=== PATIENT | male | born 1950 | race Caucasian/White ===

== ENCOUNTER 2020-02-01 13:25 | Outpatient (CLI) | payer BC, SELFPAY ==
--- NOTE | ~2020-02-01 | US_ITS ---
EXAMINATION:US venous doppler LE BI INDICATION:Polyneuropathy. Burning sensation in feet. TECHNIQUE: Multiple grayscale, color flow and Doppler images of the lower extremity deep venous syste ms were obtained and reviewed. COMPARISON:No prior studies for comparison. FINDINGS: The common femoral, superficial femoral and popliteal veins demonstrate normal respiratory variation, augmentation and compressibility. Color flow is also seen within the posterior tibial, pe roneal, greater saphenous and profunda veins. IMPRESSION: 1: No lower extremity deep venous thrombosis. Reviewed, dictated and finalized at location A.
--- NOTE | ~2020-02-01 | US_ITS ---
EXAMINATION: US art doppler w christofer ASHBY EXAM DATE: 02/01/2020 14:40 INDICATION: Feet tingling and numbness. TECHNIQUE: Segmental pressures and plethysmographic and Doppler waveforms of the brachial and lower e xtremity arteries were obtained. There is no prior study for comparison. FINDINGS: Right and left brachial artery pressures of 156 mm Hg and 151 mm Hg, respectively, are concordant (no rmal difference <= 30 mmHg). RIGHT LEG: The ankle-brachial index (DOMITILA) is 1.24 (normal >= 0.9-1). The great toe-brachial index (TBI) is 0.85 (normal >= 0.65). The lower extremity ratios, segmental pressure gradients as follows; Proximal superficial femoral artery:- Could not obtain ( mmHg). Distal superficial femoral artery: ----- Could not obtain ( mmHg). Popliteal: Could not obtain ( mmHg). Dorsalis pedis: 1.24 (194 mmHg). Posterior tibial: Could not obtain ( mmHg). (Normal gradients <= 20-30 mmHg between adjacent levels on the same leg or the same levels on the two legs). Arterial waveforms are biphasic. LEFT LEG: The ankle-brachial index (DOMITILA) is could not obtain (normal >= 0.9-1). The great toe-brachial index (TBI) is 0.88 (normal >= 0.65). The lower extremity ratios, segmental pressure gradients as follows; Proximal superficial femoral artery:- Could not obtain ( mmHg). Distal superficial femoral artery: ----- Could not obtain ( mmHg). Popliteal: Could not obtain ( mmHg). Dorsalis pedis: Could not obtain ( mmHg). Posterior tibial: Could not obtain ( mmHg). (Normal gradients <= 20-30 mmHg between adjacent levels on the same leg or the same levels on the two legs). Arterial waveforms are biphasic. IMPRESSION: 1. Right ankle-brachial index 1.24. 2. Left ankle-brachial index could not be obtained, could not Cuff Occlude arteries. Normal TBI. Reviewed, dictated and finalized at location A. IMPRESSION: 1. Right ankle-brachial index 1.24. 2. Left ankle-brachial index could not be obtained, could not Cuff Occlude art eries. Normal TBI.
== END 2020-02-01 13:26 | disposition home or self-care (01) ==
LOC: ANHIMG 13:32
PROVIDERS: PCP Internal Medicine; Visit Provider Internal Medicine
DX: G62.9 Polyneuropathy, unspecified (principal)
CPT/HCPCS: 93923; 93970

== ENCOUNTER 2022-02-12 15:46 | Outpatient (CLI) | payer BC, SELFPAY ==
--- NOTE | ~2022-02-12 | MR_ITS ---
EXAMINATION: MR cervical spine wo/w con DATE: 02/12/2022 17:26 INDICATION: Subacute combined degeneration of spinal cord. Burning in the feet. Difficulty standing. TECHNIQUE: Magnetic resonance imaging (MRI) of the cervical spine was performed without and with 20 m L MultiHance intravenous contrast. Sequences included sagittal and axial T2-weighted FSE, sagittal T2 -weighted FS FSE, and sagittal and axial T1-weighted FSE. Postcontrast sequences included sagittal an d axial T1-weighted FS FSE. COMPARISON: None FINDINGS: There is 2 mm retrolisthesis of C3 on C4. Vertebral body heights are normal. There is inter body fusion at C6-C7. There is moderately decreased disc height at C3-C4 and mildly decreased disc he ight at C4-C5. The spinal cord signal intensity is normal. The following disc levels are specifically discussed: C2-C3: There is a central extrusion. There is no uncovertebral joint osteoarthritis. There is mild ri ght and moderate left facet joint osteoarthritis. There is mild left neural foraminal stenosis. There is mild central canal stenosis. C3-C4: The disc is bulging. There is severe bilateral uncovertebral joint osteoarthritis. There is mo derate bilateral facet joint osteoarthritis. There is severe bilateral neural foraminal stenosis. The re is mild central canal stenosis. C4-C5: The disc is bulging. There is severe right and moderate left uncovertebral joint osteoarthriti s. There is mild bilateral facet joint osteoarthritis. There is severe right and moderate left neural foraminal stenosis. There is mild central canal stenosis. C5-C6: The disc is bulging with superimposed left central extrusion. There is moderate bilateral unco vertebral joint osteoarthritis. There is mild bilateral facet joint osteoarthritis. There is mild carlos alberto ateral neural foraminal stenosis. There is mild central canal stenosis with ventral indentation of th e spinal cord. C6-C7: There is moderate bilateral uncovertebral joint hypertrophy. There is mild bilateral facet kaylin nt osteoarthritis. There is mild bilateral neural foraminal stenosis. There is no central canal steno sis. C7-T1: The disc does not extend beyond the endplate margin. There is mild bilateral uncovertebral kaylin nt osteoarthritis. There is mild bilateral facet joint osteoarthritis. There is no neural foraminal s tenosis. There is no central canal stenosis. IMPRESSION: 1. Severe cervical spondylosis. Reviewed, dictated and finalized at location A.
--- NOTE | ~2022-02-12 | MR_ITS ---
EXAMINATION: MR thoracic spine wo/w con DATE: 02/12/2022 17:33 INDICATION: Subacute combined degeneration of spinal cord. Burning in the feet. TECHNIQUE: Magnetic resonance imaging (MRI) of the thoracic spine was performed without and with 20 m L MultiHance intravenous contrast. COMPARISON: Thoracic spine CT 07/12/2018 FINDINGS: Bone alignment is normal. There is mild chronic anterior wedging of T6, T7, T8, T11, T12, a nd L1 vertebral bodies. There is a hemangioma in T7 vertebral body. There is mildly decreased disc he ight at T2-T3, T3-T4, T4-T5, T5-T6, T11-T12, and T12-L1. At T2-T3, there is a left central extrusion with mild central canal stenosis. At T3-T4, there is a left central extrusion with mild central canal stenosis. At T4-T5, there is a central protrusion with mild central canal stenosis. At T6-T7, there is a left central protrusion with mild central canal stenosis. At T7-T8, there is a left central prot rusion with mild central canal stenosis. At T11-T12, there is a bulging disc with mild central canal stenosis. At T12-L1, there is a bulging disc with mild central canal stenosis. There is multilevel fa cet joint osteoarthritis, severe on the right from T3-T4 through T5-T6. There is multilevel mild neur al foraminal stenosis bilaterally. On the left at T8-T9, there is moderate neural foraminal stenosis. The spinal cord signal intensity is normal. IMPRESSION: 1. Mild thoracic spondylosis. 2. Normal spinal cord signal intensity. Reviewed, dictated and finalized at location A.
[2022-02-12 16:39] LABS: Estimated Glomerular Filt Rate > 60
== END 2022-02-12 15:47 | disposition home or self-care (01) ==
PROVIDERS: Visit Provider Psychiatry & Neurology Neurology
DX: E53.8 Deficiency of other specified B group vitamins (principal); G32.0 Subacute combined degeneration of spinal cord in diseases classified elsewhere; M47.815 Spondylosis without myelopathy or radiculopathy, thoracolumbar region; M48.05 Spinal stenosis, thoracolumbar region; M47.813 Spondylosis without myelopathy or radiculopathy, cervicothoracic region; M48.03 Spinal stenosis, cervicothoracic region
CPT/HCPCS: 72156; 72157; A9577

== ENCOUNTER 2022-02-20 09:59 | Outpatient (CLI) | payer BC, SELFPAY ==
--- NOTE | 2022-02-20 12:00 | NEURO_ITS ---
Impression: # Complains of numbness all over more so in the feet. # Mild bilateral Carpal Tunnel Syndrome. 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 # Needle/EMG exam with chronic neurogenic changes. Nerve Conduction Studies Anti Sensory Summary Table Stim Site NR Peak (ms) P-T Amp (?V) Site1 Site2 Delta-P (ms) Dist (cm) Taye (m/s) Left Median Anti Sensory (2-3nd Digit) Wrist 3.4 12.1 Wrist 2-3nd Digit 3.4 14.0 41 Wrist 3.3 19.0 Wrist 2-3nd Digit 3.4 14.0 41 Right Median Anti Sensory (2-3nd Digit) Wrist 3.8 10.2 Wrist 2-3nd Digit 3.8 14.0 37 Wrist 3.7 28.9 Wrist 2-3nd Digit 3.8 14.0 37 Left Radial Anti Sensory (Base 1st Digit) Wrist 2.1 11.8 Wrist Base 1st Digit 2.1 0.0 Right Radial Anti Sensory (Base 1st Digit) NO RESPONSE Wrist NR Wrist Base 1st Digit 0.0 Left Sup Fibular Anti Sensory (Ant Lat Mall) NO RESPONSE 14 cm NR 14 cm Ant Lat Mall 16.0 Right Sup Fibular Anti Sensory (Ant Lat Mall) NO RESPONSE 14 cm NR 14 cm Ant Lat Mall 16.0 Left Sural Anti Sensory (Lat Mall) NO RESPONSE Calf NR Calf Lat Mall 16.0 Right Sural Anti Sensory (Lat Mall) NO RESPONSE Calf NR Calf Lat Mall 16.0 Left Ulnar Anti Sensory (5th Digit) Wrist 2.7 18.4 Wrist 5th Digit 2.7 14.0 52 Right Ulnar Anti Sensory (5th Digit) Wrist 2.8 13.9 Wrist 5th Digit 2.8 14.0 50 Motor Summary Table Stim Site NR Onset (ms) O-P Amp (mV) Site1 Site2 Delta-0 (ms) Dist (cm) Taye (m/s) Left Median Motor (Abd Poll Brev) Wrist 4.3 1.0 Elbow Wrist 5.6 32.0 57 Elbow 9.9 1.1 Right Median Motor (Abd Poll Brev) Wrist 4.0 1.6 Elbow Wrist 5.1 29.0 57 Elbow 9.1 0.9 Left Peroneal Motor (Vastus Med) Ankle 5.2 3.6 Popit Ankle 9.5 41.0 43 Popit 14.7 3.0 Right Peroneal Motor (Vastus Med) Ankle 5.5 1.5 Popit Ankle 8.5 35.0 41 Popit 14.0 1.4 Left Tibial Motor (Abd Longo Brev) Ankle 4.7 0.3 Knee Ankle 9.7 43.0 44 Knee 14.4 0.3 Right Tibial Motor (Abd Longo Brev) Ankle 4.8 0.7 Knee Ankle 9.7 41.0 42 Knee 14.5 0.6 Left Ulnar Motor (Abd Dig Minimi) Wrist 2.8 6.2 A Elbow Wrist 6.3 29.0 46 A Elbow 9.1 4.8 B Elbow Wrist 3.9 23.0 59 B Elbow 6.7 4.9 Right Ulnar Motor (Abd Dig Minimi) Wrist 2.7 7.0 A Elbow Wrist 5.4 31.0 57 A Elbow 8.1 6.0 F Wave Studies NR F-Lat (ms) L-R F-Lat (ms) Left Median (Mrkrs) (Abd Poll Brev) 29.58 0.40 Right Median (Mrkrs) (Abd Poll Brev) 29.98 0.40 Left Peroneal (Mrkrs) (EDB) 54.07 1.82 Right Peroneal (Mrkrs) (EDB) 55.89 1.82 Left Tibial (Mrkrs) (Abd Hallucis) 55.80 0.00 Right Tibial (Mrkrs) (Abd Hallucis) 55.80 0.00 Left Ulnar (Mrkrs) (Abd Dig Min) 30.55 0.97 Right Ulnar (Mrkrs) (Abd Dig Min) 29.58 0.97 EMG Side Muscle Nerve Root Ins Act Fibs Amp Dur Recrt Comment Right 1stDorInt Ulnar C8-T1 Nml Nml Nml Nml Reduced Right Ext Indicis Radial (Post Int) C7-8 Nml Nml Nml Nml Nml Right Ext Digitorum Radial (Post Int) C7-8 Nml Nml Nml Nml Reduced Right BrachioRad Radial C5-6 Nml Nml Nml Nml Nml Right PronatorTeres Median C6-7 Nml Nml Nml Nml Nml Right Abd Poll Brev Medi
== END 2022-02-20 10:00 | disposition home or self-care (01) ==
PROVIDERS: Visit Provider Psychiatry & Neurology Neurology
DX: G56.03 Carpal tunnel syndrome, bilateral upper limbs (principal); G56.22 Lesion of ulnar nerve, left upper limb
CPT/HCPCS: 95886; 95913

== ENCOUNTER → 2023-05-27 10:00 | Outpatient (CLI) | payer BC, SELFPAY ==
--- NOTE | ~2023-05-27 | MR_ITS ---
MRI of the brain Clinical History: Unsteady walking Technique: Axial and sagittal T1-weighted images were acquired. These were followed by axial T2-weigh jane, diffusion weighted, gradient, and FLAIR images. Findings: There is no acute infarct, intracranial hemorrhage, or mass lesion. There are mild to moder ate chronic microvascular ischemic changes in the periventricular white matter bilaterally. Ventricles and subarachnoid spaces are mildly dilated. Orbits are unremarkable. Paranasal sinuses and mastoid air cells are clear. Major intracranial flow voids are intact. Sagittal midline structures are intact. IMPRESSION: Mild chronic microvascular ischemic changes and mild generalized atrophy. No other significant findings. Reviewed, dictated and finalized at location .
== END ==
PROVIDERS: PCP Internal Medicine; Visit Provider Internal Medicine
DX: R26.89 Other abnormalities of gait and mobility (principal)
CPT/HCPCS: 70551

== ENCOUNTER → 2023-05-27 10:03 | Outpatient (CLI) | payer BC, SELFPAY ==
--- NOTE | ~2023-05-27 | MR_ITS ---
MRI of the lumbar spine Clinical History: Radiculopathy Technique: Axial T2-weighted images, and sagittal T1-weighted, T2-weighted, and T2 fat-sat images wer e acquired. Findings: There is no acute fracture in the lumbar spine. Minimal grade 1 retrolisthesis of L2 over L 3 noted. Possible mild chronic anterior wedging deformity of L1. No suspicious bone marrow signal abn ormality seen. At L1-L2, there is moderate to advanced degenerative disc narrowing. There is minimal disc bulge and mild facet arthropathy. No central canal stenosis. There is moderate left neural foraminal narrowing, and mild right neural foraminal narrowing. At L2-L3, there is minimal disc bulge with moderate facet arthropathy. No central canal stenosis. The re is moderate to severe bilateral neural foraminal narrowing. At L3-L4, there is mild disc bulge with moderate facet arthropathy. There is severe bilateral neural foraminal narrowing, right worse than left. No [place] central canal stenosis. There is bilateral later al recess stenosis. At L4-L5, there is diffuse disc bulge and moderate facet arthropathy. No central canal stenosis. Ther e is severe bilateral neural foraminal narrowing. L5-S1, there is minimal disc bulge with mild to moderate facet arthropathy. No central canal stenosis . There is moderate to advanced left neural foraminal narrowing, and minimal right neural foraminal n arrowing. Paravertebral soft tissues are unremarkable. Impression: Moderate degenerative spondylosis, as detailed above, with multilevel neural foraminal narrowing. Reviewed, dictated and finalized at [facility]. Impression: Moderate degenerative spondylosis, as detailed above, with multilevel neural fo raminal narrowing.
== END ==
PROVIDERS: PCP Internal Medicine; Visit Provider Nurse Practitioner Family
DX: M47.26 Other spondylosis with radiculopathy, lumbar region (principal)
CPT/HCPCS: 72148

== ENCOUNTER 2023-08-14 10:53 | Emergency (ER) | payer BC, SELFPAY ==
[2023-08-14 11:06] VITALS: BP 179/85; PULSE 69; RESP 17; TEMP 36.4; O2SAT 97
--- NOTE | 2023-08-14 12:19 | ED.RECABL ---
HPI - Recheck/Abnormal Lab/Rx General Chief Complaint: Recheck/Abnormal Lab/Rx Stated Complaint: htn Time Seen by Provider: 08/14/23 12:05 History of Present Illness HPI narrative: Patient is a 73 year old with history of neuropathy, htn not on any medication here with high blood pressure. Patient was over at an intake appointment for physical therapy for his neuropathy when they checked his blood pressure and it was 215/111. He had no symptoms at that time. They checked it multiple times and although it did seem to decrease a bit, it continued to be elevated. they contacted his primary care doctor who recommended he come into the emergency department for evaluation. Patient denies ever having a headache, chest pain, shortness of breath, lightheadedness. He denies any neurologic symptoms. He notes that he previously was on some hypertensive medications which were discontinued in the past due to adverse side effects and not restarted. He is unsure which medications he was previously Prescribed. His primary care doctors through the [place] system and does not have records in our system. Related Data Home Medications Medication Instructions Recorded Confirmed atorvastatin 40 mg tablet 40 mg PO DAILY 01/07/22 01/07/22 Allergies Allergy/AdvReac Type Severity Reaction Status Date / Time No Known Allergies Allergy Unknown Verified 08/14/23 11:09 Review of Systems Review of Systems: All systems reviewed & are unremarkable except as noted in HPI and below PMFSH Past Medical History Medical History Hyperlipidemia Hypertension Low back pain Neuropathy Retina disorder Social History Social History Social History: never smoker Smoking status: Never smoker Exam Narrative: GENERAL: Well-appearing, well-nourished, and in no acute distress. HEAD: Normocephalic, atraumatic. EYES: PERRLA and EOMI. ENT: Nares clear. Mucous membranes moist. NECK: Supple. CHEST: Clear to auscultation. No respiratory distress. HEART: Regular rate and rhythm. Normal peripheral pulses. ABDOMEN: Soft, nontender, nondistended. EXTREMITIES: Normal range of motion. No edema. SKIN: Warm, dry, no rash. NEURO: No focal deficits. Alert and oriented x3. PSYCH: Normal mood and affect. Course Course Emergency Course: Chart review performed. Patient here with elevated blood pressures, not currently taking antihypertensives. Only other notes in our system are neurology phu from 2021. Triage vitals show HTN, otherwise normal. Patient seen evaluated, he is completely asymptomatic and has had natural blood pressure decrease here in the emergency department despite intervention. Lengthy discussion with patient regarding asymptomatic hypertension. Do not currently feel he requires a workup here in the emergency department. He is advised to follow-up his primary care doctor closely to have his blood pressure rechecked as he may need to be restarted on blood pressure medications. I will not restart patient on antihypertensives here in the emergency department given the fact that he has had poor side effects from 2 separate medications in the past and he is unaware of what these medications were. I also do not believe that is currently indicated to initiate new blood pressure medications in the emergency department urgently. The results of pertinent diagnostic studies and exam findings were discussed. The patient?s provisional diagnosis and plan of care were discussed with the patient and present family. The patient and/or present family expressed understanding of the diagnosis and plan. The nurse was instructed to provide written instructions and appropriate follow-up information. The patient understands their need and responsibility to obtain additional follow-up as instructed. The risks of medications administered and prescribed were discussed wit
[2023-08-14 12:44] VITALS: BP 186/106; PULSE 65; RESP 18; O2SAT 97
== END 2023-08-14 13:09 | disposition home or self-care (01) ==
PROVIDERS: Emergency Provider Student in an Organized Health Care Education/Training Program; PCP Internal Medicine
DX: I10 Essential (primary) hypertension (principal); G62.9 Polyneuropathy, unspecified; E78.5 Hyperlipidemia, unspecified
CPT/HCPCS: 99281